=== PATIENT | female | born 1975 | race Asian ===

== ENCOUNTER 2016-06-07 19:33 | Emergency (ER) | payer BC ==
[~2016-06-07] VITALS: Ht 157.5 cm; Wt 78.0 kg
[2016-06-07 19:36] VITALS: BP 188/91; PULSE 108; RESP 16; TEMP 98.2; O2SAT 100
[2016-06-07 20:00] VITALS: BP 157/76; PULSE 80; RESP 16; O2SAT 100
[2016-06-07] MEDS ORDERED: AMLO10 PO (20:12)
[2016-06-07] MEDS ORDERED: OMEP40CA2 PO (20:12)
[2016-06-07 20:39] LABS: MEAN CORPUSCULAR HGB CONC 27.3 % (32.0-36.0)
[2016-06-07] MEDS ORDERED: SODIUM CHLORIDE 0.9% FLUSH 5 ML FLUSH IVF PRN (20:45)
--- NOTE | 2016-06-07 20:59 | PD ---
HPI Chief Complaint: Complaint Time Seen by Provider: 20:37 Travel History International Travel<30 days: No Contact w/Intl Traveler<30days: No Traveled to known affect area: No History of Present Illness HPI Patient is a 40 year [id number] female with a history of recurrent ovarian cyst who presents to the ED with a 2 day history of right lower quadrant pain that radiates to the back. She initially attributed symptoms to being on her menses but after taking ibuprofen the symptoms have not resolved. She describes the pain as being a sharp interment cramping pain that rates a 8-9/10 on the pain scale. She denies any nausea, vomiting, diarrhea, change in urinary frequency, genitourinary symptoms, or weight loss. History Past Medical History Tetanus Vaccination: Unknown Social History Alcohol Use: No Tobacco Use: No Allergies-Medications (Allergen,Severity, Reaction): Coded Allergies: No Known Allergies (Unverified , 06/07/16) Reported Meds & Prescriptions Reported Meds & Active Scripts Active Ferrous Sulfate 325 Mg Tab 325 Mg PO DAILY Zofran (Ondansetron HCl) 4 Mg Tab 4 Mg PO Q6HR PRN Ultram (Tramadol HCl) 50 Mg Tab 50 Mg PO Q6H PRN Flomax (Tamsulosin HCl) 0.4 Mg Cap 0.4 Mg PO HS Reported Omeprazole 40 Mg Cap 40 Mg PO DAILY Norvasc (Amlodipine Besylate) 10 Mg Tab 10 Mg PO DAILY Review of Systems Except as stated in HPI: all other systems reviewed are Neg Physical Exam Narrative GENERAL: well developed, well nourished, appears comfortable SKIN: Warm and dry. HEAD: Atraumatic. Normocephalic. EYES: Pupils equal and round. No scleral icterus. No injection or drainage. ENT: No nasal bleeding or discharge. Mucous membranes pink and moist. NECK: Trachea midline. No JVD. CARDIOVASCULAR: Regular rate and rhythm. RESPIRATORY: No accessory muscle use. Clear to auscultation. Breath sounds equal bilaterally. GASTROINTESTINAL: Abdomen soft, right lower quadrant tenderness on palpation with guarding, nondistended. Hepatic and splenic margins not palpable. GENITOURINARY: Exam was performed with female nurse log hauler: There is no bleeding seen in the vagina or from the cervix. Cervix is normal, no CMT, no bimanual tenderness, grossly normal female external genitalia. MUSCULOSKELETAL: Extremities without clubbing, cyanosis, or edema. No obvious deformities. NEUROLOGICAL: Awake and alert. No obvious cranial nerve deficits. Motor grossly within normal limits. Five out of 5 muscle strength in the arms and legs. Normal speech. PSYCHIATRIC: Appropriate mood and affect; insight and judgment normal. Data Data Last Documented VS Vital Signs Date Time Temp Pulse Resp B/P Pulse Ox O2 Delivery O2 Flow Rate FiO2 06/08/16 00:00 80 16 145/76 100 06/07/16 19:36 98.2 Orders Urinalysis - C+S If Indicated (06/07/16 20:03) Ed Urine Pregnancytest Poc (06/07/16 20:03) Complete Blood Count With Diff (06/07/16 20:38) Comprehensive Metabolic Panel (06/07/16 20:38) Lipase (06/07/16 20:38) Prothrombin Time / Inr (Pt) (06/07/16 20:38) Act Partial Throm Time (Ptt) (06/07/16 20:38) Iv Access Insert/Monitor (06/07/16 20:38) Ecg Monitoring (06/07/16 20:38) Oximetry (06/07/16 20:38) Sodium Chloride 0.9% Flush (Ns Flush) (06/07/16 20:45) Ct Abd/Pel W Iv Contrast(Rout) (06/07/16 ) Ketorolac Inj (Toradol Inj) (06/07/16 21:00) Wet Prep Profile (06/07/16 20:57) Iohexol 350 Inj (Omnipaque 350 Inj) (06/07/16 22:52) Us Pelvis Comp W Dop Transvag (06/07/16 ) Labs Laboratory Tests Test 06/07/16 06/07/16 06/07/16 20:00 20:15 23:25 Urine Color LIGHT-YELLOW Urine Turbidity CLEAR Urine pH 6.5 Urine Specific [place] 1.008 Urine Protein NEG mg/dL Urine Glucose (UA) NEG mg/dL Urine Ketones NEG mg/dL Urine Occult Blood NEG Urine Nitrite NEG Urine Bilirubin NEG Urine Urobilinogen LESS THAN 2.0 MG/DL Urine Leukocyte Esterase NEG Urine RBC 1 /hpf Urine WBC 1 /hpf Urine Squamous Epithelial <1 /hpf Cells Urine Hyaline Casts 1 /lpf Urine Mucus FEW /lpf Microscopic Urinalysis Comment CULT NOT INDICATED White Blood Count 10.2 TH/MM3 Red Blood Count 4.90 MIL/MM3 Hemoglobin 7.5 GM/DL Hematocrit 27.5 % Mean Corpuscular Volume 56.2 FL Mean Corpuscular Hemoglobin 15.3 PG Mean Corpuscular Hemoglobin 27.3 % Concent Red Cell Distribution Width 20.1 % Platelet Count 463 TH/MM3 Mean Platelet Volume 8.4 FL Neutrophils (%) (Auto) 75.2 % Lymphocytes (%) (Auto) 16.7 % Monocytes (%) (Auto) 6.6 % Eosinophils (%) (Auto) 1.0 % Basophils (%) (Auto) 0.5 % Neutrophils # (Auto) 7.7 TH/MM3 Lymphocytes # (Auto) 1.7 TH/MM3 Monocytes # (Auto) 0.7 TH/MM3 Eosinophils # (Auto) 0.1 TH/MM3 Basophils # (Auto) 0.1 TH/MM3 CBC Comment AUTO DIFF Differential Comment AUTO DIFF CONFIRMED Platelet Estimate HIGH Platelet Morphology Comment NORMAL Ovalocytes 1+ Prothrombin Time 10.1 SEC Prothromb Time International 0.9 RATIO Ratio Activated Partial 23.8 SEC Thromboplast Time Sodium Level 138 MEQ/L Potassium Level 3.3 MEQ/L Chloride Level 103 MEQ/L Carbon Dioxide Level 22.4 MEQ/L Anion Gap 13 MEQ/L Blood Urea Nitrogen 13 MG/DL Creatinine 0.90 MG/DL Estimat Glomerular Filtration 70 ML/MIN Rate Random Glucose 110 MG/DL Calcium Level 8.6 MG/DL Total Bilirubin 0.3 MG/DL Aspartate Amino Transf 14 U/L (AST/SGOT) Alanine Aminotransferase 18 U/L (ALT/SGPT) Alkaline Phosphatase 120 U/L Total Protein 8.0 GM/DL Albumin 4.0 GM/DL Lipase 217 U/L Clue Cells (Wet Prep) NONE SEEN Vaginal Trichomonas (Wet Prep) NONE SEEN Vaginal Yeast (Wet Prep) NONE SEEN MDM Medical Decision Making Medical Screen Exam Complete: Yes Emergency Medical Condition: Yes Medical Record Reviewed: Yes Differential Diagnosis ovarian torsion appendicitis Kidney stone Pancreatitis Cholecystitis Gastritis Gastritis Anemia. Narrative Course Patient was remembers department, her physical exam is reassuring and she appears well. Workup is significant for a 5 mm kidney stone as well as polycystic ovaries and endometrial fluid and nodule. Patient was also noted to be anemic with a minimum of 7.5. She did not aware that she might of had a history of this or not. She has been bleeding but states that she has never had any heavy periods. MCV is low suggestive of iron deficiency anemia. She has no symptoms of hypovolemia at this time. I discussed with her need for follow-up with urologist as well as an CONTROL PANEL TESTER. She was off also offered admission to the hospital for urology consultation given her kidney stone size she probably only has about 50% chance of passing this on her own. She would like to try at home prior to intervention. Discussed with her hypovolemic symptoms that they should prompt emergent revisit. Last 24 hours Impressions Abdomen/Pelvis/Transvag US 06/07/16 0000 Signed Impressions: Service Date/Time: Tuesday, June 07, 2016 21:56 - CONCLUSION: Polycystic ovaries. Endometrial fluid and nodule. Please verify that the patient is not . Raul Bush MD Abdomen/Pelvis CT 06/07/16 0000 Signed Impressions: Service Date/Time: Tuesday, June 07, 2016 22:46 - CONCLUSION: 5 mm stone at the right ureteropelvic junction with significant obstruction and mild hydronephrosis. Bilateral renal cysts Polycystic ovaries. Lipomatous mass involving the subcutaneous tissues of the lateral right hip region. Raul Bush MD Diagnosis Primary Impression: Kidney stone Additional Impressions: Anemia Uterine cyst Referrals: Janine Tariq MD,Hussain Kee MD Additional Instructions: Call your primary care physician tomorrow, call Dr. Alonso the urologist tomorrow. Call Dr. Peterson or the SLAB LIFTING SUPERVISOR tomorrow. If you're unable to set up appointments with these providers within the next 1-2 weeks then return to the emergency department. Med/Other Pt SpecificInfo: Prescription(s) given Scripts Ferrous Sulfate 325 Mg [id number] Mg PO DAILY #30 TAB Ref 0 Prov:William Abarca MD 06/07/16 Ondansetron (Zofran)4 Mg Tab4 Mg PO Q6HR PRN (NAUSEA OR VOMITING) #30 TAB Ref 0 Prov:William Abarca MD 06/07/16 Tramadol (Ultram)50 Mg Tab50 Mg PO Q6H PRN (PAIN) #15 TAB Ref 0 Prov:William Abarca MD 06/07/16 Tamsulosin (Flomax)0.4 Mg Cap0.4 Mg PO HS #30 CAP Ref 0 Prov:William Abarca MD 06/07/16 Disposition: 01 DISCHARGE HOME Condition: Stable William Abarca MD Jun 07, 2016 20:59
[2016-06-07] MEDS ORDERED: KETOROLAC TROMETHAMINE 30 MG/ML (IVP) VIAL IV PUSH ONE (21:00)
[2016-06-07 21:05] LABS: BLOOD, URINE NEG (NEG); COMMENT (UR) CULT NOT INDICATED; CULTURE IF INDICATED CULT NOT INDICATED; GLUCOSE,URINE NEG (NEG); HYALINE CAST, URINE 1 /lpf (RARE); KETONE, URINE NEG (NEG); MUCUS URINE FEW /lpf (OCC); NITRITE,URINE NEG (NEG); PH, URINE 6.5 (5.0-8.5); SQUAMOUS EPITHELIAL CELL URINE <1 /hpf (0-5); URINE COLOR LIGHT-YELLOW (YELLW/STRAW)
[2016-06-07 21:24] LABS: AUTOMATED NEUTROPHIL # 7.7 TH/MM3 (1.8-7.7); BASOPHIL # 0.1 TH/MM3 (0-0.2); BASOPHIL % 0.5 % (0.0-2.0); EOSINOPHIL # 0.1 TH/MM3 (0-0.4); HEMATOCRIT 27.5 % (35.0-46.0); LYMPH % 16.7 % (9.0-44.0); LYMPHOCYTE # 1.7 TH/MM3 (1.0-4.8); MEAN CELL VOLUME 56.2 FL (80.0-100.0); MEAN CORPUSCULAR HEMOGLOBIN 15.3 PG (27.0-34.0); MONO % 6.6 % (0.0-8.0); NEUT % 75.2 % (16.0-70.0); PLATELET COUNT 463 TH/MM3 (150-450); RED CELL DISTRIBUTION WIDTH 20.1 % (11.6-17.2); WHITE BLOOD COUNT 10.2 TH/MM3 (4.0-11.0)
[2016-06-07 21:29] LABS: HEMO FLAGS AUTO DIFF
[2016-06-07 21:32] LABS: APTT (PATIENT) 23.8 SEC (24.3-30.1); INTERNATIONAL NORMALIZED RATIO 0.9 RATIO; PROTHROMBIN TIME - PATIENT 10.1 SEC (9.8-11.6)
[2016-06-07 21:54] LABS: OVALOCYTES 1+ (NORMAL); PLATELET ESTIMATE SMEAR HIGH (NORMAL); PLATELET MORPHOLOGY NORMAL (NORMAL); SCAN/DIFF AUTO DIFF CONFIRMED
[2016-06-07 22:00] VITALS: BP 145/77; PULSE 79; RESP 18; O2SAT 100
[2016-06-07 22:02] LABS: ANION GAP 13 MEQ/L (5-15); AST (GOT) 14 U/L (15-37); BICARBONATE 22.4 MEQ/L (21.0-32.0); BLOOD UREA NITROGEN 13 MG/DL (7-18); CHLORIDE 103 MEQ/L (98-107); GLOMERULAR FILTRATION RATE 70 ML/MIN (>89); POTASSIUM 3.3 MEQ/L (3.5-5.1); SODIUM (NA) 138 MEQ/L (136-145)
[2016-06-07 22:05] LABS: ALKALINE PHOSPHATASE 120 U/L (45-117); ALT (GPT) 18 U/L (10-53); TOTAL BILIRUBIN ADULT 0.3 MG/DL (0.2-1.0)
[2016-06-07] MEDS ORDERED: IOHEXOL 350 MG/ML 10 ML VIAL (for RAD DIAG) IV ONE (22:52)
--- NOTE | 2016-06-07 23:10 | RADRPT ---
EXAM DATE/TIME: 06/07/2016 22:46 2 [facility] COMPARISON: No previous studies available for comparison. INDICATIONS : Abdominal pain that radiates to right flank pain for the past two. IV CONTRAST: 66 cc Omnipaque 350 (iohexol) IV ORAL CONTRAST: No oral contrast ingested. RADIATION DOSE: 13.33 CTDIvol (mGy) MEDICAL HISTORY : Hypertension. SURGICAL HISTORY : Right ovarian cyst. ENCOUNTER: Initial ACUITY: 2 days PAIN SCALE: 4/10 LOCATION: Right abdomen TECHNIQUE: Volumetric scanning of the abdomen and pelvis was performed. Using automated exposure control and ad justment of the mA and/or kV according to patient size, radiation dose was kept as low as reasonably achievable to obtain optimal diagnostic quality images. FINDINGS: LOWER LUNGS: Mild right lung base atelectasis. LIVER: Homogeneous density without lesion. There is no dilation of the biliary tree. No calcified gallston es. SPLEEN: Normal size without lesion. PANCREAS: Within normal limits. KIDNEYS: The right kidney is mildly swollen and there is a 5 mm stone at the ureteropelvic junction. Mild hydr onephrosis is present. There is mild diminished relative perfusion of the kidney. Small cyst is noted in the anterolateral cortex of the right kidney. Contralateral left kidney is notable for a small cy st in the medial lower pole cortex. ADRENAL GLANDS: Within normal limits. VASCULAR: There is no aortic aneurysm. BOWEL/MESENTERY: The stomach, small bowel, and colon demonstrate no acute abnormality. There is no free intraperitone al air or fluid. ABDOMINAL WALL: Within normal limits. RETROPERITONEUM: There is no lymphadenopathy. BLADDER: No wall thickening or mass. REPRODUCTIVE: Lobular cysts are present involving the ovaries bilaterally including a multitude of large cysts invo lving the right ovary, largest greater than 7 cm area is no free pelvic fluid. INGUINAL: There is no lymphadenopathy or hernia. MUSCULOSKELETAL: There is a lobular lipomatous mass involving the soft tissues of the lateral right hip region have in completely seen on this exam but measuring greater than 16 cm in sagittal extent. CONCLUSION: 5 mm stone at the right ureteropelvic junction with significant obstruction and mild hydronephrosis. Bilateral renal cysts Polycystic ovaries. Lipomatous mass involving the subcutaneous tissues of the lateral right hip region. Raul Bush MD on June 07, 2016 at 23:01 Board Certified Radiologist. This report was verified electronically.
--- NOTE | 2016-06-07 23:22 | RADRPT ---
EXAM DATE/TIME: 06/07/2016 21:56 [facility] COMPARISON: No previous studies available for comparison. EXTERNAL COMPARISON : [facility], US PELVIS - COMPLETE, February 22, 2016 INDICATIONS : Pelvic pain. MEDICAL HISTORY : Hypertension. Gastroesophageal reflux disease. SURGICAL HISTORY : Right ovarian cyst removal. ENCOUNTER: Initial ACUITY: 2 days PAIN SCORE: 6/10 LOCATION: Bilateral pelvis MEASUREMENTS: UTERUS: 8.5 x 6.0 x 4.8 cm ENDOMETRIAL STRIPE: 6 mm RIGHT OVARY: 8.1 x 5.6 x 5.4 cm LEFT OVARY: 6.2 x 2.3 x 3.3 cm FINDINGS: UTERUS: There is some fluid present in the endometrial cavity. A nodular solid area is also seen within the e ndometrial cavity. This may be an endometrial polyp. Please verify that the patient is not , however. RIGHT OVARY: Multiple lobular cystic masses, largest approximately 8 cm. 2 other smaller lesions. LEFT OVARY: 3.5 cm cyst. MISCELLANEOUS: No free fluid. CONCLUSION: Polycystic ovaries. Endometrial fluid and nodule. Please verify that the patient is not . Raul Bush MD on June 07, 2016 at 23:17 Board Certified Radiologist. This report was verified electronically.
[2016-06-07] MEDS ORDERED: FERR325T PO (23:53)
[2016-06-07] MEDS ORDERED: TAMS5CAP PO (23:53)
[2016-06-07] MEDS ORDERED: ZOFR4TAB PO (23:53)
[2016-06-07] MEDS ORDERED: ULTR50TA5 PO (23:53)
[2016-06-08] VITALS: BP 145/76
== END 2016-06-08 | disposition home or self-care (01) ==
LOC: NEPA 19:33
DX: N13.2 Hydronephrosis with renal and ureteral calculous obstruction (principal); D64.9 Anemia, unspecified; N85.8 Other specified noninflammatory disorders of uterus; E28.2 Polycystic ovarian syndrome
CPT/HCPCS: 74177; 76830; 76856; 80053; 81001; 83690; 84703; 85025; 85610; 85730; 87210; 93975; 96374; 99284; J1885; Q9967; 87491; 87591